=== PATIENT | male | born 1990 | race Caucasian/White ===

== ENCOUNTER 2023-01-31 19:30 | Emergency (ER) | payer OTHER ==
[2023-01-31 19:42] VITALS: BP 130/86; PULSE 58; RESP 18; TEMP 98.4; BMI 27.9
== END 2023-01-31 22:00 | disposition home or self-care (01) ==
LOC: JERFT 19:30
PROC: 0HQGXZZ Repair Left Hand Skin, External Approach (ICD-10-PCS; principal; 2023-01-31)
PROC: 2W3KX1Z Immobilization of Left Finger using Splint (ICD-10-PCS; 2023-01-31)
DX: S61.012A Laceration without foreign body of left thumb without damage to nail, initial encounter (principal); X58.XXXA Exposure to other specified factors, initial encounter; Y99.0 Civilian activity done for income or pay
CPT/HCPCS: 73130-TC-LT-FY; 99283-25

== ENCOUNTER 2024-01-03 08:57 | Emergency (ER) | payer OTHER ==
[2024-01-03 09:02] VITALS: BP 127/73; PULSE 62; RESP 20; TEMP 98; BMI 27.2
[2024-01-03] MEDS ORDERED: IBUPROFEN 600 MG TABLET (FP) PO ONE (09:42)
[2024-01-03] MEDS: IBUPROFEN 600 MG TABLET (FP) PO ONE (09:44)
== END 2024-01-03 12:15 | disposition home or self-care (01) ==
LOC: JERFT 08:57
DX: M25.561 Pain in right knee (principal); X50.1XXA Overexertion from prolonged static or awkward postures, initial encounter
CPT/HCPCS: 73560-TC-RT-FY; 99283-25